=== PATIENT | female | born 1955 | race Caucasian/White ===

== ENCOUNTER → 2017-04-28 | Outpatient (CLI) | payer BC | LOC: FLAB 12:39 | PROVIDERS: ATTEND Otolaryngology | DX: J43.2 Centrilobular emphysema (principal); R91.8 Other nonspecific abnormal finding of lung field; M41.9 Scoliosis, unspecified ==

== ENCOUNTER → 2018-03-22 | Outpatient (CLI) | payer BC | LOC: FIMAGING 13:06 | PROVIDERS: ATTEND Internal Medicine | DX: R05 Cough (principal); J43.9 Emphysema, unspecified ==

== ENCOUNTER → 2018-06-09 | Outpatient (CLI) | payer BC | LOC: FIMAGING 07:10 | PROVIDERS: ATTEND Physician Assistant | DX: I70.0 Atherosclerosis of aorta (principal); F17.200 Nicotine dependence, unspecified, uncomplicated ==

== ENCOUNTER 2018-08-11 14:20 | Emergency (ER) | payer BC ==
--- NOTE | 2018-08-11 15:00 | EDPHY ---
H & P Stated Complaint: Fell, hit right side of head, injuries to bilat hips and right wrist. Time Seen by Provider: 08/11/18 14:58 - Personal History Current Tetanus Diphtheria and Acellular Pertussis (TDAP): Yes Tetanus Vaccine Date: 6 years ago - Medical/Surgical History Hx Asthma: No Hx Chronic Respiratory Disease: No Hx Diabetes: No Hx Cardiac Disease: No Hx Renal Disease: No Hx Cirrhosis: No Hx Alcoholism: No Hx HIV/AIDS: No Hx Splenectomy or Spleen Trauma: No Other PMH: ECTOPIC . GANGLION CYST SURGERY - Social History Smoking Status: Heavy smoker Constitutional: Initial Vital Signs Temperature (C) 36.4 C 08/11/18 14:27 Heart Rate 61 08/11/18 14:27 Respiratory Rate 16 08/11/18 14:27 Blood Pressure 88/59 L 08/11/18 14:27 O2 Sat (%) 97 08/11/18 14:27 O2 Delivery Mode [Post Non-Rebreather Mask Procedure 1st] O2 Delivery Mode [Procedural Non-Rebreather Mask 1st] O2 Delivery Mode [.Immediate Non-Rebreather Mask Pre-Procedure] O2 Delivery Mode Nasal Cannula O2 (L/minute) [Post Procedure 100 1st] O2 (L/minute) [Procedural 1st] 15 O2 (L/minute) [.Immediate Pre- 15 Procedure] O2 (L/minute) 2 Allergies/Adverse Reactions: No Known Allergies Allergy (Unverified 07/08/14 19:01) Home Medications: Medication Instructions Recorded Lexapro 10 MG 08/11/18 oxyCODONE IR [Oxycodone Ir (*)] 5 - 10 mg PO Q6 PRN #20 tab 08/11/18 Medical Decision Making - Diagnostics Imaging Results: Imaging Impressions Wrist X-Ray 08/11/18 15:03 Impression: Comminuted dorsally angulated Colles' fracture. Head CT 08/11/18 15:24 Impression: Head CT within normal limits. Results called to Dr. Oscar Gómez at 4:29 PM General information for patients regarding this examination can be found at [email or web address]. If you have questions or comments about this report, please contact me at [phone] (hospital) or [phone] (cell). Pelvis CT 08/11/18 15:24 Impression: 1. No evidence of acute, displaced fracture in the pelvis. Dr. Gómez was notified of these findings by telephone at 4:53 PM on 08/11/2018 Wrist X-Ray 08/11/18 17:40 Findings/IMPRESSION: Interval casting of radial and ulnar fractures. Osseous structures remain mildly displaced but in improved anatomic alignment. Imaging: Discussed imaging studies w/ paper control clerk Radiologist, I viewed and interpreted images myself ED Course/Re-evaluation: CHIEF COMPLAINT: Head injury, hip pain, right wrist pain HISTORY OF PRESENT ILLNESS: The patient is a 63 y/o female complaining of head pain, hip pain, and right wrist pain after falling today. Today she was standing on a step-stool and fell onto her right wrist. She braced herself with her right wrist and subsequently hit her right shoulder and head. She denies LOC or any seizure-like activity. Shortly after the fall she developed dizziness, but this has since subsided. Since the fall she has developed right wrist, bilateral hip pain, and right-sided head pain. She reports that the hip pain is deep in the front of her pelvis. She denies using anticoagulants. No chest pain, shortness of breath, abdominal pain urinary or bowel complaints, numbness, paresthesias, fevers. REVIEW OF SYSTEMS: A comprehensive 10 system review of systems is otherwise negative aside from the elements mentioned in the history of present illness and medical decision making. PHYSICAL EXAM: HR, BP, O2 Sat, RR. Temp noted General Appearance: Alert, well hydrated, appropriate, and non-toxic appearing. Head: Atraumatic without scalp tenderness or obvious injury Eyes: Pupils equal, round, reactive to light and accommodation, EOMI, right eye ecchymosis, no injection. Ears: Clear bilaterally, no perforation, normal landmarks Nose: Atraumatic, no rhinorrhea, clear. Throat: There is no erythema or exudates, no lesions, normal tonsils, mucus membranes moist. Neck: Supple, 2+ carotid upstroke, nontender, no lymphadenopathy. Respiratory: No retractions, no distress, no wheezes, and no accessory muscle use. Lungs are clear to auscultation bilaterally. Cardiovascular: Regular rate and rhythm, no murmurs, rubs, or gallops. Bilateral carotid, radial, dorsalis pedis, and posterior tibial pulses intact. Good capillary refill all extremities. Gastrointestinal: Abdomen is soft, nontender, non-distended, no masses, no rebound, no guarding, no peritoneal signs. Musculoskeletal: Right distal wrist deformity with dorsal angulation, tenderness , and swelling. Decreased lower extremity ROM due to hip pain. Neurological: Alert, appropriate, and interactive. The patient has normal DTRs and non-focal cranial nerves, motor, sensory, and cerebellar exam. Skin: No rashes, good turgor, no nodules on palpation. Past medical history: Ectopic Past surgical history: Ganglion cyst surgery Family history: Denies Social history: Lives in [place], at bedside, retired DIAGNOSTICS/PROCEDURES/CRITICAL CARE TIME: Head CT: No acute findings Pelvic CT: No acute findings Right arm x-ray: Distal radial and ulnar fracture that is comminuted, impacted, and intra-articulated Procedure: Conscious sedation. Indication: Right distal radial and ulnar fracture The patient is an appropriate candidate to tolerate procedural sedation. The patient's vitals signs and mental status are appropriate. The risks, benefits and alternatives of the sedation were discussed with the patient. The patient is ASA classification 1. The patient's Mallampati airway score was 1 and the patient did meet the 3-3-2 airway measurements. A time out was completed. The patient was sedated with 60mg IV Propofol. The patient was monitored with continuous pulse oximetry, monitor worker and end tidal CO2. There were no complications and no significant hypoxemia. I performed both the sedation and the procedure. The total time I spent at the bedside during the procedural sedation was 20 minutes. The patient was examined after the procedural sedation and has returned to their pre-sedation baseline with normal vital signs and a normal examination. Procedure: Reduction of right distal radial and ulnar fracture Time-out completed immediately before the procedure. IV established. O2 administered. Placed on pulse oximeter and [id number]. Neurovascular exam intact pre-procedure. Given 60mg IV Propofol for pain and sedation. The right distal radius and ulna was reduced using traction-countertraction. Reassessed post-procedure. Neurovascular status intact- normal median, radial, ulnar and axillary nerve motor and sensory exam. Exam indicated reduction. Confirmed reduction on X-ray. Arm sling and splint applied. The procedure was performed by myself, Dr. Gómez. DIFFERENTIAL DIAGNOSIS: The differential diagnosis for the patient's head injury included but was not limited to concussion, skull fracture, intra-parenchymal contusion, subarachnoid , subdural and epidural hematoma. The differential diagnosis for the patient's arm injury included but was not limited to fracture, ligamentous injury, contusion, muscular strain. MEDICAL DECISION MAKING: The patient is a 63 y/o female presenting with head pain, hip pain, and right wrist pain after falling today. On exam she has right eye ecchymosis, right distal wrist deformity with dorsal angulation, tenderness, and swelling, and decreased lower extremity ROM due to the bilateral hip pain. Head CT, pelvic CT , right arm x-ray ordered; 1mg IV Dilaudid administered. 1554: Reassessed patient and further examined her. Her hip pain is more consistent with a muscle strain. Her pain has improved since receiving the Dilaudid. 1640: I spoke with Dr. Hein, radiologist, who reports no acute findings on the head CT. Pelvic CT and arm x-ray still pending. 1653: I spoke with Dr. Santana, radiologist, who reports there are not acute findings of the pelvic CT. 1655: I reviewed patient's right arm x-ray. There is a distal radial and ulnar fracture that is comminuted, impacted, and intra-articulated. She will need a closed reduction. 1710: Reassessed patient and discussed imaging findings. I have discussed the need to preform a closed reduction that will require conscious sedation; she is comfortable with this plan. 1723: Reassessed patient, she has been moved to the trauma room for a conscious sedation and reduction. 1735: 1mg IV Dilaudid administered as patient is still in pain after reduction. 1751: I reviewed patient's post-reduction x-ray. 1800: 4mg Zofran administered. She will start a PO trial. 1805: Reassessed patient, she is becoming more awake after sedation. I have advised her to followup with an orthopedic surgeon within the next week as she will most likely need surgery. Return precautions provided; patient is comfortable with this plan. 1933: Patient's nurse reports that the patient becomes nauseous and has vomited when she tries to stand up; additional 4mg IV Zofran administered. - Data Points Medications Given: Discontinued Medications Hydromorphone HCl (Dilaudid) 1 mg IVP EDNOW ONE Stop: 08/11/18 15:14 Last Admin: 08/11/18 15:25 Dose: 1 mg Hydromorphone HCl (Dilaudid) 1 mg IVP EDNOW ONE Stop: 08/11/18 17:55 Last Admin: 08/11/18 17:56 Dose: 1 mg Ondansetron HCl (Zofran) 4 mg IVP EDNOW ONE Stop: 08/11/18 17:55 Last Admin: 08/11/18 17:56 Dose: 4 mg Ondansetron HCl (Zofran) 4 mg IVP EDNOW ONE Stop: 08/11/18 18:50 Last Admin: 08/11/18 18:50 Dose: 4 mg Oxycodone/Acetaminophen (Percocet 5/325mg Prepack#4) 1 btl TAKEHOME EDNOW ONE Stop: 08/11/18 17:39 Last Admin: 08/11/18 18:17 Dose: 1 btl Propofol (Diprivan) 60 mg IVP EDNOW ONE Stop: 08/11/18 17:54 Last Admin: 08/11/18 17:29 Dose: 60 mg Departure - Departure Disposition: Home, Routine, Self-Care Clinical Impression: Closed fracture distal radius and ulna Qualifiers: Encounter type: initial encounter Laterality: right Qualified Code(s): S52.501A - Unspecified fracture of the lower end of right radius, initial encounter for closed fracture Instructions: Oxycodone, Slow Release (By mouth), Arm Fracture in Adults (ED) Additional Instructions: 1. Rest, ice, elevation. 2. Follow up with an orthopedic surgeon within one week. 3. Return to the emergency department for worsening pain, swelling, numbness, weakness or other concerns. 4. Wear splint at all times until reevaluation. 5. Take OxyIR as prescribed for sever pain. Referrals: Francisco Rolle MD [Primary Care Provider] - As per Instructions Joseph Moore MD [Medical Doctor] - As per Instructions Prescriptions: oxyCODONE IR [Oxycodone Ir (*)] 5 - 10 mg PO Q6 PRN #20 tab PRN Reason: Pain, Severe Report Scribed for: Oscar Gómez Report Scribed by: Rebekah Coulter Date of Report: 08/11/18 Time of Report: 15:00
[2018-08-11] MEDS ORDERED: HYDROmorphONE/DILAUDID 2 MG/ML INJ IVP ONE ×2 (15:13→17:54)
[2018-08-11] MEDS ORDERED: PROPOFOL 200 MG/20 ML VIAL ONE (17:12)
[2018-08-11] MEDS ORDERED: ONDANSETRON 4 MG/2 ML VIAL ONE (17:18)
[2018-08-11] MEDS ORDERED: OXYCODONE/APAP 5/325MG PREPACK#4 BTL TAKEHOME ONE (17:38)
[2018-08-11] MEDS ORDERED: PROPOFOL 200 MG/20 ML VIAL IVP ONE (17:53)
[2018-08-11] MEDS ORDERED: ONDANSETRON 4 MG/2 ML VIAL IVP ONE ×2 (17:54→18:49)
[2018-08-11 19:40] VITALS: BP 111/66
== END 2018-08-11 19:38 | disposition home or self-care (01) ==
PROC: 0PSHXZZ Reposition Right Radius, External Approach (ICD-10-PCS; principal; 2018-08-11)
DX: S52.531A Colles' fracture of right radius, initial encounter for closed fracture (principal); S52.614A Nondisplaced fracture of right ulna styloid process, initial encounter for closed fracture; R51 Headache; M25.551 Pain in right hip; M25.552 Pain in left hip; W08.XXXA Fall from other furniture, initial encounter; F17.200 Nicotine dependence, unspecified, uncomplicated
CPT/HCPCS: 96374; J1170; J2405; J2704

== ENCOUNTER 2018-08-12 15:41 | Inpatient (IN) | payer BC ==
[2018-08-12] MEDS ORDERED: IBUPROFEN 600 MG TAB PO ONE (15:53)
--- NOTE | 2018-08-12 15:58 | EDPHY ---
H & P Stated Complaint: N/V S/P R WRIST FX, ON OXYCODONE Time Seen by Provider: 08/12/18 15:44 HPI/ROS: CHIEF COMPLAINT: Vomiting HISTORY OF PRESENT ILLNESS: The patient presents the ED with vomiting and weakness. She was seen in the emergency department yesterday and underwent a closed reduction for right distal radius fracture. Patient did have some vomiting while in the emergency department yesterday which seemed to improve with Zofran. She was sent home with a prescription for Percocet. She has continued to take the medication today however is had ongoing abdominal cramping and vomiting while using this medication. She ultimately called paramedics today. She was brought in by EMS having received a 4 mg dose of Zofran. Patient complains of expected pain in the area of her distal radius fracture. She denies any new traumatic injury. She denies chest pain, abdominal pain, vomiting or diarrhea. REVIEW OF SYSTEMS: A comprehensive 10 point review of systems is otherwise negative aside from elements mentioned in the history of present illness. Source: Patient Exam Limitations: No limitations - Personal History Current Tetanus/Diphtheria Vaccine: Yes Tetanus Vaccine Date: 6 years ago - Medical/Surgical History Hx Asthma: No Hx Chronic Respiratory Disease: No Hx Diabetes: No Hx Cardiac Disease: No Hx Renal Disease: No Hx Cirrhosis: No Hx Alcoholism: No Hx HIV/AIDS: No Hx Splenectomy or Spleen Trauma: No Other PMH: ECTOPIC . GANGLION CYST SURGERY - Social History Smoking Status: Heavy smoker - Physical Exam Exam: General Appearance: Alert, no distress Eyes: Pupils equal and round no pallor or injection ENT, Mouth: Mucous membranes moist Respiratory: There are no retractions, lungs are clear to auscultation Cardiovascular: Regular rate and rhythm Gastrointestinal: Abdomen is soft and nontender, no masses, bowel sounds normal Neurological: A&O, normal motor function, normal sensory exam, normal cranial nerves Skin: Warm and dry, no rashes Musculoskeletal: Neck is supple nontender Extremities: Splint and sling noted to right upper extremity Psychiatric: Patient is oriented X 3, there is no agitation Constitutional: Initial Vital Signs Temperature (C) 36.8 C 08/12/18 15:49 Heart Rate 63 08/12/18 15:49 Respiratory Rate 16 08/12/18 15:49 Blood Pressure 103/40 L 08/12/18 15:49 O2 Sat (%) 96 08/12/18 15:49 O2 Delivery Mode Room Air Allergies/Adverse Reactions: No Known Allergies Allergy (Unverified 07/08/14 19:01) Home Medications: Medication Instructions Recorded Lexapro 10 MG 08/11/18 oxyCODONE IR [Oxycodone Ir (*)] 5 - 10 mg PO Q6 PRN #20 tab 08/11/18 Medical Decision Making ED Course/Re-evaluation: I reviewed the patient's past medical records. The patient received IV Zofran prior to arrival. She received additional IV fluids in the emergency department. She was given some ibuprofen for pain control. She continued to have worsening pain. She was given a half a mg dose of Dilaudid. The patient continued to have ongoing uncontrolled nausea and vomiting. She will require admission to the hospital for symptomatic care. Consultation was made with Dr. Richy Turner from the hospitalist service who will admit the patient. Differential Diagnosis: Differential diagnosis considered includes medication side effect, dehydration, vomiting - Data Points Laboratory Results: Laboratory Results 08/12/18 16:09 08/12/18 16:09 08/12/18 08/12/18 16:09 16:09 WBC 8.02 10^3/uL 10^3/uL (3.80-9.50) RBC 4.24 10^6/uL 10^6/uL (4.18-5.33) Hgb 13.1 g/dL g/dL (12.6-16.3) Hct 39.3 % % (38.0-47.0) MCV 92.7 fL fL (81.5-99.8) MCH 30.9 pg pg (27.9-34.1) MCHC 33.3 g/dL g/dL (32.4-36.7) RDW 13.3 % % (11.5-15.2) Plt Count 204 10^3/uL 10^3/uL (150-400) MPV 10.8 fL fL (8.7-11.7) Neut % (Auto) 77.3 % H % (39.3-74.2) Lymph % (Auto) 17.0 % % (15.0-45.0) [place] % (Auto) 4.9 % % (4.5-13.0) Eos % (Auto) 0.2 % L % (0.6-7.6) Baso % (Auto) 0.2 % L % (0.3-1.7) Nucleat RBC Rel Count 0.0 % % (0.0-0.2) Absolute Neuts (auto) 6.20 10^3/uL 10^3/uL (1.70-6.50) Absolute Lymphs (auto) 1.36 10^3/uL 10^3/uL (1.00-3.00) Absolute Monos (auto) 0.39 10^3/uL 10^3/uL (0.30-0.80) Absolute Eos (auto) 0.02 10^3/uL L 10^3/uL (0.03-0.40) Absolute Basos (auto) 0.02 10^3/uL 10^3/uL (0.02-0.10) Absolute Nucleated RBC 0.00 10^3/uL 10^3/uL (0-0.01) Immature Gran % 0.4 % % (0.0-1.1) Immature Gran # 0.03 10^3/uL 10^3/uL (0.00-0.10) Sodium 136 mEq/L mEq/L (135-145) Potassium 4.0 mEq/L mEq/L (3.3-5.0) Chloride 99 mEq/L mEq/L (97-110) Carbon Dioxide 27 mEq/l mEq/l (22-31) Anion Gap 10 mEq/L mEq/L (6-14) BUN 17 mg/dL mg/dL (7-23) Creatinine 0.6 mg/dL mg/dL (0.6-1.0) Estimated GFR > 60 Glucose 90 mg/dL mg/dL (70-100) Calcium 9.0 mg/dL mg/dL (8.5-10.4) Medications Given: Discontinued Medications Hydromorphone HCl (Dilaudid) 0.5 mg IVP EDNOW ONE Stop: 08/12/18 17:19 Last Admin: 08/12/18 17:22 Dose: 0.5 mg Sodium Chloride (Ns) 1,000 mls @ 0 mls/hr IV EDNOW ONE; Wide Open PRN Reason: Protocol Stop: 08/12/18 16:03 Last Admin: 08/12/18 16:11 Dose: 1,000 mls Ibuprofen (Motrin) 600 mg PO EDNOW ONE Stop: 08/12/18 15:54 Last Admin: 08/12/18 16:11 Dose: 600 mg Ondansetron HCl (Zofran) 4 mg IVP EDNOW ONE Stop: 08/12/18 17:21 Last Admin: 08/12/18 17:21 Dose: 4 mg Departure - Departure Disposition: [facility] Clinical Impression: Vomiting, Distal radius fracture, right Condition: Good Referrals: Francisco Rolle MD [Primary Care Provider] - As per Instructions
[2018-08-12] MEDS ORDERED: NS 1,000 ML IV ONE (16:02)
[2018-08-12 16:25] LABS: PLATELET COUNT 204 10^3/uL (150-400)
[2018-08-12] MEDS ORDERED: HYDROmorphONE/DILAUDID 2 MG/ML INJ IVP ONE (17:18)
[2018-08-12] MEDS ORDERED: ONDANSETRON 4 MG/2 ML VIAL ONE (17:19)
[2018-08-12] MEDS ORDERED: HYDROmorphONE/DILAUDID 1 MG/ML INJ ONE (17:19)
[2018-08-12] MEDS ORDERED: ONDANSETRON 4 MG/2 ML VIAL IVP ONE (17:20)
[2018-08-12] MEDS ORDERED: HYDROmorphONE/DILAUDID 1 MG/ML INJ IVP PRN (18:27)
[2018-08-12] MEDS ORDERED: ONDANSETRON 4 MG/2 ML VIAL IVP PRN (18:27)
[2018-08-12] MEDS ORDERED: ONDANSETRON DISINTEGRATING 4 MG TAB PO PRN (18:27)
[2018-08-12] MEDS ORDERED: HYDROmorphONE/DILAUDID 2 MG TAB PO PRN (18:27)
[2018-08-12] MEDS ORDERED: PROMETHAZINE HCL 25 MG/ML INJ IVP PRN (18:27)
[2018-08-12] MEDS ORDERED: KETOROLAC 15 MG/1 ML SDV ONE (18:35)
[2018-08-12] MEDS ORDERED: KETOROLAC 15 MG/1 ML SDV IVP ONE (18:40)
--- NOTE | 2018-08-12 19:26 | GHP ---
DATE OF ADMISSION: 08/12/2018 HISTORY OF PRESENT ILLNESS: The patient is a pleasant 63-year-old female with a history of a Colles fracture of her right wrist which happened yesterday. She was seen in the emergency department. She also bumped her head and hit her hip. That imaging was negative for intracranial or hip injury. Augie beck was sent home with Percocet. She has had persistent nausea and vomiting since. She has been reall y having a hard time keeping things down, felt disoriented and like her head is spinning. She does n ot typically take narcotics. She has minimal past medical history. In the emergency department, she received some IV fluids, some Dilaudid, some Toradol, and is feeling better. She continues to have nausea. REVIEW OF SYSTEMS: Complete 10-point review of systems conducted negative except as in the HPI. PAST MEDICAL HISTORY: Recent fall, ectopic in the 80s. ALLERGIES: No known drug allergies. HOME MEDICATIONS: Percocet and Lexapro. SOCIAL HISTORY: She smokes cigarettes. Lives with her here in [place]. FAMILY HISTORY: Negative for VTE. PHYSICAL EXAMINATION: VITAL SIGNS: Temp 36.8, blood pressure 103/40, pulse 63, breathing 16 times a minute, 96% on room air. GENERAL: No acute distress. HEENT: Sclerae anicteric. Oropharynx clear . Mucous membranes moist. NECK: Supple without lymphadenopathy, JVD. LUNGS: Clear to auscultatio n bilaterally. HEART: S1, S2. ABDOMEN: Soft, nontender, nondistended. LOWER EXTREMITIES: Withou t edema. RIGHT UPPER EXTREMITY: Is in an ulnar gutter cast through her hand. Her fingers are cool and tingly. There is cap refill. NEUROLOGIC: Nonfocal. LABS: White count 8, hematocrit 40, platelets are 204,000. Sodium 136, potassium 4, chloride 99, bi carb 27, BUN 17, creatinine 0.6, glucose 90. Films yesterday showed Colles fracture. I have reviewe d and interpreted them myself. I discussed the case with Dr. Kenneth Yousif. ASSESSMENT AND PLAN: 63-year-old female with nausea, vomiting, uncontrolled pain. 1. Uncontrolled pain. I think she is not responding well to the oxycodone. Give her Tylenol, sched uled ibuprofen, p.r.n. IV and p.o. Dilaudid, and will follow. 2. Nausea. I think this is narcotic related. I have written her for some Phenergan and some Zofran . Will follow. 3. Tight cast. I think her cast is a bit tight. I had it rewrapped and rechecked her fingers, and they are now warm and well perfused and are more comfortable. 4. Prophylaxis, sequential compression devices. DISPOSITION: Observation status. /[id number]/MODL
[2018-08-12] MEDS ORDERED: CALCIUM CARBONATE 500 MG CHEWABLE TAB PO PRN (20:14)
[2018-08-12] MEDS: NS 1,000 ML IV SCH (20:42)
[2018-08-12] MEDS: ACETAMINOPHEN 500 MG TAB PO SCH (21:04)
[2018-08-12] MEDS: IBUPROFEN 200 MG TAB PO SCH (21:05)
[2018-08-12] MEDS: ESCITALOPRAM OXALATE 10 MG TAB PO SCH (21:05)
[2018-08-13] MEDS: IBUPROFEN 200 MG TAB PO SCH ×6 (01:32→20:33)
[2018-08-13] MEDS: ACETAMINOPHEN 500 MG TAB PO SCH ×3 (05:38→22:01)
[2018-08-13] MEDS: NS 1,000 ML IV SCH ×2 (05:40→20:34)
--- NOTE | 2018-08-13 11:17 | HOSPPROG ---
Hospitalist Progress Note Assessment/Plan: 63 yo F with recent all and resultant right wrist fracture presenting with increased pain, n/v and gait instability. # right wrist fracture: patient with right Colle's fracture for which she underwent closed reduction in the ER on the and was sent home, unfortunately pain has been an issue and now patient is having difficulty ambulating as she had multiple injuries during her fall and is requiring a walker to ambulate--she is having difficulty managing using the walker with her broken wrist. As next. # gait instability: as above, recent fall with bruises and pain and broken wrist as above, patient unable to ambulate safely even with walker with her limited ability to use her arm at this point. Will get pt/ot involved, may require SNF if unable to ambulate safely. # n/v: seems to be related to oxycodone which patient had been prescribed following her fall, doing better now with nausea medication and alternate opiate # IP status, patient will require > 48 hours stay for above issues given inability to ambulate safely and risk for fall Patient new to my care. Old records reviewed and summarized as above. Care plan reviewed with Dr. Turner. Subjective: no significant overnight events, patient notes that she was unable to walk today with a walker as she was having too much pain and difficulty using it without her right arm Objective: Vital Signs Temp Pulse Resp BP Pulse Ox 37.0 C 58 L 16 101/52 L 97 08/13/18 07:56 08/13/18 07:56 08/13/18 07:56 08/13/18 07:56 08/13/18 07:56 08/12/18 08/13/18 08/14/18 05:59 05:59 05:59 Intake Total 2050 Output Total 500 Balance 1550 awake alert anicteric op clear rrr no mrg cta b soft nt nd no cce warm dry well perfused oriented appropriate - Time Spent With Patient Time Spent with Patient: greater than 35 minutes Time Spent with Patient: Greater than 35 minutes spent on this patients care, greater than 50% of time spent counseling, educating, and coordinating care regarding the above mentioned plan. ICD10 Worksheet Patient Problems: Problems Problem Status Onset Vomiting Acute Distal radius fracture, right Acute
--- NOTE | 2018-08-13 16:34 | PDMN ---
Medical Necessity Medical necessity: Change to inpt as of 08/13/18. Pt meets inpt criteria per MD order and Musculoskeletal Disease GRG. 63 y/o with recent fall and R writst fracture presented w/increased pain, N/V, gait instability. Upgraded to inpt status with ongoing pain, inability to ambulate safely. PT/OT, pain management, IV antiemetics, IVF. Est LOS>2MN for ongoing eval/management of above.
--- NOTE | 2018-08-13 16:48 | ASMTCMCOM ---
CM Note CM Note Notes: 63yo female had a fall: c/o head and hip pain, N/V, gait instability, R wrist fx. Patient now using a walker, N/V due to oxy-medication changed. PT/ST recommending Home w/. No other needs. Date Signed: 08/13/2018 04:47 PM Electronically Signed By:Marla Azevedo LCSW
[2018-08-13] MEDS: ESCITALOPRAM OXALATE 10 MG TAB PO SCH (20:33)
[2018-08-14] MEDS: IBUPROFEN 200 MG TAB PO SCH ×3 (01:28→10:49)
[2018-08-14] MEDS: ACETAMINOPHEN 500 MG TAB PO SCH (05:42)
[2018-08-14 09:24] VITALS: BP 135/61
--- NOTE | 2018-08-14 11:48 | PDIAF ---
- Diagnosis Diagnosis: Weakness Code Status: Full Code - Medication Management Discharge Medications: Medications to Continue on Transfer Escitalopram Oxalate [Lexapro 10 MG] 10 mg PO HS 08/11/18 [Last Taken 08/10/18 21:00] Calcium Carbonate [Tums 500MG (*)] 1,000 mg PO TID PRN 08/12/18 [Last Taken Unknown] Ibuprofen [Motrin (*)] 400 mg PO BID PRN 08/12/18 [Last Taken Unknown] Acetaminophen [Tylenol ES 500 mg (*)] 1,000 mg PO Q8 tab 08/14/18 [Last Taken Unknown] Discharge Medications: Refer to the Discharge Home Medication list for PRN reason. PICC Care - Routine: N/A - Orders Services needed: Physical Therapy, Occupational Therapy Diet Recommendation: no restrictions on diet - Follow Up Care Current Providers and Referrals: Francisco Rolle MD [Primary Care Provider] - As per Instructions
--- NOTE | 2018-08-14 12:50 | PDIAF ---
- Diagnosis Diagnosis: Weakness Code Status: Full Code - Medication Management Discharge Medications: Medications to Continue on Transfer Escitalopram Oxalate [Lexapro 10 MG] 10 mg PO HS 08/11/18 [Last Taken 08/10/18 21:00] Calcium Carbonate [Tums 500MG (*)] 1,000 mg PO TID PRN 08/12/18 [Last Taken Unknown] Ibuprofen [Motrin (*)] 400 mg PO BID PRN 08/12/18 [Last Taken Unknown] Acetaminophen [Tylenol ES 500 mg (*)] 1,000 mg PO Q8 tab 08/14/18 [Last Taken Unknown] Discharge Medications: Refer to the Discharge Home Medication list for PRN reason. PICC Care - Routine: N/A - Orders Services needed: Home Care, Physical Therapy, Occupational Therapy Home Care Face to Face: I certify that this patient was under my care and that I had the required [id number] encounter meeting the encounter requirements on the discharge day. My findings support the fact that the patient is homebound as defined in Home Care Face to Face Continued: CMS Chapter 7 Medicare Benefits Manual 30.1.1 , The condition of the patient is such that there exists a normal inability to leave home and consequently, leaving home would require a considerable and taxing effort. Diet Recommendation: no restrictions on diet - Follow Up Care Current Providers and Referrals: Francisco Rolle MD [Primary Care Provider] - As per Instructions
--- NOTE | 2018-08-14 12:52 | ASMTLACE ---
NANY Length of stay for Answers: 1 day current admission Acuity / Level of Answers: No Care: Did the patient have an inpatient admission? Comorbidities - select Answers: Other Notes: Colles fracture of righ t all that apply wrist, fell and hit her head, disoriented # of Emergency department Answers: 1-2 visits in the last 6 months Score: 3 Date Signed: 08/14/2018 12:50 PM Electronically Signed By:Blossom Biggs LCSW
--- NOTE | 2018-08-14 12:56 | ASMTDCNOTE ---
Case Management Discharge Discharge Order Complete? Answers: Yes Patient to Obtain Answers: Independently Medications Transportation Arranged Answers: Family/Friends Faxed Final Orders Answers: Yes Notes: [facility] Agency/Facility Transfer Answers: Yes Notes: [facility] Report Printed & Faxed to Receiving Agency Family Notified Answers: Yes Notes: Bj Discharge Comments Notes: Patient is ready to discharge home today. Patient chose [facility] to do her home health followup. Discharge summaries faxed to [facility] via [employer]. They will coordinate with her , Bj as he is keeping track of all her appointments currently. Bj will transport patient home. His cell phone number is [phone]. No further needs. Date Signed: 08/14/2018 12:55 PM Electronically Signed By:Blossom Biggs LCSW
--- NOTE | 2018-08-14 13:40 | GDS ---
DISCHARGE DIAGNOSES: 1. Gait instability. 2. Recent wrist fracture. 3. Nausea, vomiting. 4. Pain. PHYSICAL EXAM: GENERAL: The patient is alert and oriented. VITAL SIGNS: Afebrile at 36.7, pulse 5 4, respiratory rate 14. Blood pressure is 135/61. She is saturating 95% on room air. I have seen a nd evaluated the patient on the day of discharge. HOSPITAL COURSE: The patient is a 63-year-old female who presented to the emergency room with compla ints of nausea and vomiting. She was evaluated and diagnosed with: 1. Gait instability. The patient has had recent falls and bruises. She has been evaluated by Physi alina Therapy and Occupational Therapy during this hospitalization, and she has been cleared to be disc harged home independently with a walker. 2. Recent wrist fracture. This has been surgically repaired during her previous hospitalization, an d she will follow up in the outpatient setting with Orthopedics. 3. Nausea and vomiting. This is multifactorial. It is likely secondary to the patient's narcotic u se. She has been treated with Zofran. Her symptoms have significantly resolved. She is tolerating a regular diet. We have instructed her to remain diligent about her bowel protocol and to not allow herself to become constipated with the use of narcotics. DISPOSITION: She will be discharged home with home health care. There are no pending studies. DISCHARGE MEDICATIONS: Please refer to EMR form. I have provided the patient a prescription for Zofr an. I have not discontinued the patient's other previously prescribed home medications. She will fo llow up with her orthopedist as well as her primary care physician, Dr. Otto Rolle. /[id number]/MODL
--- NOTE | 2018-08-15 09:47 | ASDISCHSUM ---
Discharge Information Plan Status:Home with No Needs Medically Cleared to Leave: Discharge Date:08/14/2018 01:18 PM CM D/C Disposition:Home, Routine, Self-Care ADT D/C Disposition:Home Health Service Projected Discharge Date:08/14/2018 11:00 AM Transportation at D/C: Discharge Delay Reason: Follow-Up Date:08/14/2018 11:00 AM Discharge Slot: Final Diagnosis:Fall: R wrist fx, N/V, Gait instability, Hip pain Placement Information Referral Type:*Home Health Care Services Referral ID:[id number] Provider Name:[facility] Address 1:[address] [facility] [address] Address 2: City:[place] Selection Factors: State:[place] Patient Contact Information Contact Name:BERYL Relationship: Address:[address] City:[place] Alternate Phone: [facility]/Zip Code:[place] [address] Email: Financial Information Financial Class:BCOP Primary Plan Desc:BC OUT OF STATE PPO Primary Plan Number:[id number] Secondary Plan Desc: Secondary Plan Number: Assessment Information [facility] CM Progress Note CM Note CM Note Notes: 63yo female had a fall: c/o head and hip pain, N/V, gait instability, R wrist fx. Patient now using a walker, N/V due to oxy-medication changed. PT/ST recommending Home w/. No other needs. Date Signed: 08/13/2018 04:47 PM Electronically Signed By:Marla Azevedo LCSW LACE NATTYE Length of stay for Answers: 1 day current admission Acuity / Level of Answers: No Care: Did the patient have an inpatient admission? Comorbidities - select Answers: Other Notes: Colles fracture of righ t all that apply wrist, fell and hit her head, disoriented # of Emergency department Answers: 1-2 visits in the last 6 months Score: 3 Date Signed: 08/14/2018 12:50 PM Electronically Signed By:Blossom Biggs LCSW Case Management Discharge Plan Note Case Management Discharge Discharge Order Complete? Answers: Yes Patient to Obtain Answers: Independently Medications Transportation Arranged Answers: Family/Friends Faxed Final Orders Answers: Yes Notes: [facility] Agency/Facility Transfer Answers: Yes Notes: [facility] Report Printed & Faxed to Receiving Agency Family Notified Answers: Yes Notes: Bj Discharge Comments Notes: Patient is ready to discharge home today. Patient chose [facility] to do her home health followup. Discharge summaries faxed to [facility] via [employer]. They will coordinate with her , Bj as he is keeping track of all her appointments currently. Bj will transport patient home. His cell phone number is [phone]. No further needs. Date Signed: 08/14/2018 12:55 PM Electronically Signed By:Blossom Biggs LCSW Intervention Information
== END 2018-08-14 13:18 | disposition home health service (06) | DRG 392 ==
LOC: EDUNIT# → F3N 20:24 → OBSVTOIN 08-13 10:38
PROVIDERS: ADMIT Internal Medicine; ATTEND Internal Medicine
DX: R11.2 Nausea with vomiting, unspecified (principal); S52.531A Colles' fracture of right radius, initial encounter for closed fracture; E86.9 Volume depletion, unspecified; R26.89 Other abnormalities of gait and mobility; T40.605A Adverse effect of unspecified narcotics, initial encounter; Z98.890 Other specified postprocedural states; W08.XXXA Fall from other furniture, initial encounter
CPT/HCPCS: 92523-GN; 96374; 97116-GP; 97162-GP; 97165-GO; G0378; J1170; J1885; J2405

== ENCOUNTER → 2018-08-16 | Outpatient (CLI) | payer BC | LOC: FIMAGING 14:33 | PROVIDERS: ATTEND Orthopaedic Surgery Hand Surgery | DX: M54.16 Radiculopathy, lumbar region (principal); R93.7 Abnormal findings on diagnostic imaging of other parts of musculoskeletal system; M51.37 Other intervertebral disc degeneration, lumbosacral region; M48.061 Spinal stenosis, lumbar region without neurogenic claudication; M48.07 Spinal stenosis, lumbosacral region; M41.9 Scoliosis, unspecified ==

== ENCOUNTER → 2018-09-25 | Outpatient (CLI) | payer BC ==
[~2018-09-25] MED LIST: GADOBUTROL 10 ML VIAL IVP ONE
== END ==
LOC: FIMAGING 09:05
PROVIDERS: ATTEND Orthopaedic Surgery Orthopaedic Surgery of the Spine
DX: S32.10XA Unspecified fracture of sacrum, initial encounter for closed fracture (principal); M41.86 Other forms of scoliosis, lumbar region
CPT/HCPCS: 72158; 78306; A9503; A9585

== ENCOUNTER → 2018-11-08 | Outpatient (CLI) | payer BC | LOC: FIMAGING 11:34 ==

== ENCOUNTER → 2018-11-30 | Outpatient (CLI) | payer BC | LOC: FIMAGING 10:33 | PROVIDERS: ATTEND Physician Assistant | DX: Z12.31 Encounter for screening mammogram for malignant neoplasm of breast (principal); Z13.820 Encounter for screening for osteoporosis; M81.0 Age-related osteoporosis without current pathological fracture; Z80.3 Family history of malignant neoplasm of breast; Z78.0 Asymptomatic menopausal state ==